=== PATIENT | male | born 1980 | race Two or more races ===

== ENCOUNTER 2017-01-11 10:41 | Emergency (ER) | payer OTHER | END 2017-01-11 14:56 | disposition other institution (70) | LOC: FER 10:41 | DX: S81.042A Puncture wound with foreign body, left knee, initial encounter (principal); W45.8XXA Other foreign body or object entering through skin, initial encounter; W29.4XXA Contact with nail gun, initial encounter; Z23 Encounter for immunization; F17.210 Nicotine dependence, cigarettes, uncomplicated | CPT/HCPCS: 73560; 90471; 90715; J0690 ==